=== PATIENT | male | born 1940 | race Caucasian/White ===

== ENCOUNTER → 2017-03-06 | Outpatient (CLI) | payer SELFPAY ==
--- NOTE | 2017-03-06 12:58 | CT ---
CT Calcium Score Clinical information: 77-year-old male for coronary artery disease risk assessment. Comparison: None. ECG Gating: Prospective Scan range: Pulmonary artery bifurcation to diaphragm. Findings: Examination quality: Could. Limitation: None. Total calcium score: 487 Total volume score: 396 mm3 Percentile: 50-75 % Artery scores Left main coronary artery: 1 Left anterior descending artery: 51 Left circumflex artery: 394 Right coronary artery: 41 Other findings: Cardiac chambers: Unremarkable. Cardiac valves: Unremarkable. Thoracic aorta: Unremarkable. Lungs: Unremarkable. Upper abdomen: Unremarkable. Impression: Total calcium score of 487 that corresponds with extensive atherosclerotic plaque and high risk of c ardiac event within the next 5 years. Reported By:
== END ==
LOC: RAD 09:01
PROVIDERS: ATTEND Nuclear Medicine Nuclear Cardiology
DX: Z13.6 Encounter for screening for cardiovascular disorders (principal)